=== PATIENT | female | born 1985 ===

== ENCOUNTER 2022-04-21 13:38 | Outpatient (CLI) | payer OTHER, SELFPAY ==
--- NOTE | 2022-04-21 13:46 | ECHO_ITS ---
Patient Info Name: Bryanna Mason Age: 37 years : 1985 Gender: Female Ht: 65 in Wt: 130 lbs BSA: 1.65 m2 HR: 66 bpm BP: 113 / 67 mmHg Technical Quality: Good Exam Date: 04/21/2022 2:10 PM Exam Location: [facility] Patient Status: Outpatient Admit Date: 04/21/2022 Staff Ordering Physician: Sunni Swartz Lifestyle Consultant: Larry Sharif RDCS Attending Provider: Sunni Swartz Referring Physician: Sheridan NOWAK; Exam Type: CA echo doppler color flow Study Info Indications R01.1 - Cardiac murmur, unspecified Complete two-dimensional, color flow and Doppler transthoracic echocardiogram is performed. Summary 1. Complete two-dimensional, color flow and Doppler transthoracic echocardiogram is performed. 2. Left ventricular chamber dimension is normal. 3. Left ventricular systolic function is normal, estimated at 60-65%. 4. The left ventricular diastolic function is normal. 5. E/e' 5 is not elevated. Left Ventricle E/e' 5 is not elevated. Left ventricular chamber dimension is normal. Left ventricular systolic function is normal, estimated at 60-65%. The left ventricular diastolic function is normal. Right Ventricle Right ventricular systolic function is normal and with normal TAPSE 2.2 cm. Right ventricular chamber dimension is normal. Left Atria Left atrial chamber dimension is normal. Right Atria Right atrial chamber dimension is normal. Aortic Valve The aortic valve is trileaflet. There is no aortic valve stenosis. There is no aortic valve regurgitation. Pulmonic Valve There is no pulmonic regurgitation. Mitral Valve There is no mitral valve stenosis. There is no mitral valve regurgitation. Tricuspid Valve There is no tricuspid valve regurgitation. Pericardium/Pleural There is no pericardial effusion. Inferior Vena Cava Normal inferior vena cava with >50% collapse upon inspiration consistent with normal right atrial pressure, 5 mmHg. Aorta The aortic root size at the sinus of Valsalva is normal. Left Ventricular Outflow Tract Name Value Normal LVOT 2D LVOT Diameter 2.0 cm LVOT Doppler LVOT Peak Gradient 4 mmHg LVOT Mean Gradient 3 mmHg LVOT VTI 22 cm LVOT VTI/AV VTI Ratio 1.0 LVOT Stroke Volume 67 ml LVOT CO 4.8 l/min LVOT CI 2.9 l/min/m2 Mitral Valve Name Value Normal MV Doppler MV Peak Gradient 3 mmHg MV Mean Gradient 1 mmHg MV Decel Eddy 334 cm/s2 MV PHT 57 ms MV Area (PHT) 3.9 cm2 4.0-5.0
== END 2022-04-21 13:39 | disposition home or self-care (01) ==
PROVIDERS: PCP Nurse Practitioner Family; Visit Provider Nurse Practitioner Family
DX: R01.1 Cardiac murmur, unspecified (principal); R00.2 Palpitations
CPT/HCPCS: 93306